=== PATIENT | female | born 1985 | race Caucasian/White ===

== ENCOUNTER → 2016-11-24 10:00 | Observation (INO) ==
--- NOTE | 2016-11-24 09:00 | Discharge Summary ---
Date of Encounter: 11/24/16 Time of Encounter: 09:00 - Discharge Diagnosis (1) 35 weeks gestation of Priority: Primary Status: Acute Comments: Admit for observation (2) Sciatic leg pain Priority: Secondary Status: Acute Comments: Discussed comfort measures and interventions with patient. Patient denies any questions or concerns. - Discharge Medications Home Medications: Aspirin [Lo-Dose Aspirin EC] 81 mg PO DAILY 08/26/16 [History] Lebetolol . 100 mg PO BID 08/26/16 [History] Vitamin Tablet PO DAILY 08/26/16 [History] Ferrous Sulfate [Iron] 325 mg PO DAILY 11/24/16 [History] Allergies/Adverse Reactions: Allergies latex Allergy (Verified 08/26/16 14:13) Rash Date of admission: 11/24/16 08:04 Discharging clinician: Leeann Chávez Anticipated date of discharge: 11/24/16 - Patient Status Disposition: Home, Self-Care Condition: Good Functional capacity at discharge: independent ambulation - Discharge Instructions Follow Up With: Lennie Trinidad DO [Partnered Physician] - - Diet and Activity Activity: increase activity as tolerated Diet: regular diet Hospital Course CONE TREATER Hospital course: Patient is 30 y/o at 35 weeks gestation presents with complaints of sciatic nerve pain of the left leg. Patient denies contractions, LOF or VB. Patient reports +FM. Patient denies any dysuria or urinary frequency. Patient is scheduled for tomorrow in OB office with Dr. Trinidad. Time Attestation: Total time spent providing and/or coordinating discharge services: Time Spent: Less than 30 minutes Exam - Constitutional General appearance IM: A&O X 3, pleasant, answers questions appropriately - Respiratory Respiratory exam: Present: CTAB - Cardiovascular Cardiovascular exam IM: Present: RRR, +S1, +S2 - GI/Abdominal GI/Abdominal exam IM: normal bowel sounds - Extremities Exam Extremities exam IM: Present: full ROM, normal capillary refill, normal inspection - Neurological Exam Neurological exam: alert, oriented X3, reflexes normal - Other Additional findings: FHR 135 bpm moderate variability +15x15 accels no decels noted. Cat. 1 tracing. Reactive NST. - VTE Reasons for not Prescribing Prophylaxis: Treatment not Indicated - Low risk for VTE
== END | disposition home or self-care (01) ==
LOC: 1NENULAB
PROVIDERS: ADMIT Advanced Practice Midwife; ATTEND Obstetrics & Gynecology

== ENCOUNTER → 2016-12-11 20:00 | Observation (INO) ==
[2016-12-11 18:49] LABS: Bilirubin,Urine Negative (Negative); Blood,Urine Negative (Negative); Clarity,Urine Cloudy (Clear); Color,Urine Yellow (Yellow); Glucose,Urine (UA) Normal (Normal); Ketones,Urine Negative (Negative); Leukocyte Esterase,Urine Trace (Negative); Nitrite,Urine Negative (Negative); Protein,Urine Negative (Neg-Trace); Urobilinogen,Urine Normal (Normal)
[2016-12-11 18:50] LABS: Bacteria,Urine None Seen per hpf (None-Few); Hyaline Casts,Urine None Seen per lpf (None-Few); RBC,Urine 0-3 per hpf (0-3); Squamous Epithelial Cell,Urine Many per lpf (None-Few); WBC,Urine 0-3 per hpf (0-3)
[2016-12-11 19:00] LABS: Alanine Aminotransferase 7 Units/L (0-55); Aspartate Amino Transferase 14 Units/L (5-34); BUN/Creatinine Ratio 8 (6-26); Uric Acid 4.1 mg/dL (2.6-6.0); eGFR For African Americans > 60 (> 60); eGFR For Non-African Americans > 60 (> 60)
[2016-12-11 19:04] LABS: Blood Urea Nitrogen 5 mg/dL (7-20); Lactate Dehydrogenase 199 Units/L (159-327)
[2016-12-11 19:20] LABS: Creatinine,Urine 31 mg/dL; Protein/Creatinine Ratio,Urine 0.23 mg/mg (0-0.20)
--- NOTE | 2016-12-11 19:35 | Discharge Summary ---
Date of Encounter: 12/11/16 Time of Encounter: 19:34 - Discharge Diagnosis (1) Gestational hypertension Priority: Primary Status: Acute Comments: Pt denies headache, epigastric pain, blurry vision, or other visual changes. Pt reports good movement, denies contractions, vaginal bleeding or leaking of fluid. BPs have been within range last 142/80. All PIH labs WNL. Will discharge home with pre-e and labor precautions, when to call provider or return to triage. Pt verbalizes understanding. Qualifiers: Trimester: third trimester Qualified Code(s): O13.3 - Gestational [ -induced] hypertension without significant proteinuria, third trimester (2) 38 weeks gestation of Priority: Primary Status: Acute (3) NST (non-stress test) reactive Priority: Secondary Status: Acute Comments: Baseline 120 - Discharge Medications Home Medications: Aspirin [Lo-Dose Aspirin EC] 81 mg PO DAILY 08/26/16 [History] Lebetolol . 100 mg PO BID 08/26/16 [History] Vitamin Tablet 1 / PO DAILY 08/26/16 [History] Ferrous Sulfate [Iron] 325 mg PO DAILY 11/24/16 [History] Allergies/Adverse Reactions: Allergies latex Allergy (Verified 08/26/16 14:13) Rash Data Procedures and tests throughout hospitalization: Laboratory Tests 12/11/16 12/11/16 12/11/16 18:25 18:35 18:35 BUN 5 L Creatinine 0.59 Est GFR ( Amer) > 60 Est GFR (Non-Af Amer) > 60 BUN/Creatinine Ratio 8 Uric Acid 4.1 AST 14 ALT 7 Lactate Dehydrogenase 199 Urine Color Yellow Urine Clarity Cloudy A Urine pH 7.0 Ur Specific [place] 1.010 Urine Protein Negative Urine Glucose (UA) Normal Urine Ketones Negative Urine Blood Negative Urine Nitrite Negative Urine Bilirubin Negative Urine Urobilinogen Normal Ur Leukocyte Esterase Trace H Urine Microscopic RBC 0-3 Urine Microscopic WBC 0-3 Ur Squamous Epith Cells Many H Urine Bacteria None Seen Hyaline Casts None Seen Urine Creatinine Protein/Creatinin Ratio Urine Total Protein Specimen Rejected Clotted 12/11/16 18:35 BUN Creatinine Est GFR ( Amer) Est GFR (Non-Af Amer) BUN/Creatinine Ratio Uric Acid AST ALT Lactate Dehydrogenase Urine Color Urine Clarity Urine pH Ur Specific [place] Urine Protein Urine Glucose (UA) Urine Ketones Urine Blood Urine Nitrite Urine Bilirubin Urine Urobilinogen Ur Leukocyte Esterase Urine Microscopic RBC Urine Microscopic WBC Ur Squamous Epith Cells Urine Bacteria Hyaline Casts Urine Creatinine 31 Protein/Creatinin Ratio 0.23 H Urine Total Protein < 7 Specimen Rejected Labs on day of discharge: Labs from last 24 hours 12/11/16 12/11/16 12/11/16 18:35 18:35 18:35 BUN 5 L Creatinine 0.59 Est GFR ( Amer) > 60 Est GFR (Non-Af Amer) > 60 BUN/Creatinine Ratio 8 Uric Acid 4.1 AST 14 ALT 7 Lactate Dehydrogenase 199 Urine Color Yellow Urine Clarity Cloudy A Urine pH 7.0 Ur Specific [place] 1.010 Urine Protein Negative Urine Glucose (UA) Normal Urine Ketones Negative Urine Blood Negative Urine Nitrite Negative Urine Bilirubin Negative Urine Urobilinogen Normal Ur Leukocyte Esterase Trace H Urine Microscopic RBC 0-3 Urine Microscopic WBC 0-3 Ur Squamous Epith Cells Many H Urine Bacteria None Seen Hyaline Casts None Seen Urine Creatinine 31 Protein/Creatinin Ratio 0.23 H Urine Total Protein < 7 Specimen Rejected 12/11/16 18:25 BUN Creatinine Est GFR ( Amer) Est GFR (Non-Af Amer) BUN/Creatinine Ratio Uric Acid AST ALT Lactate Dehydrogenase Urine Color Urine Clarity Urine pH Ur Specific [place] Urine Protein Urine Glucose (UA) Urine Ketones Urine Blood Urine Nitrite Urine Bilirubin Urine Urobilinogen Ur Leukocyte Esterase Urine Microscopic RBC Urine Microscopic WBC Ur Squamous Epith Cells Urine Bacteria Hyaline Casts Urine Creatinine Protein/Creatinin Ratio Urine Total Protein Specimen Rejected Clotted Date of admission: 12/11/16 17:51 Discharging clinician: Ann Lee Anticipated date of discharge: 12/11/16 - Patient Status Disposition: Home, Self-Care Condition: Good Functional capacity at discharge: independent ambulation Overall status at discharge: patient is back to baseline - Discharge Instructions - Diet and Activity Activity: resume usual activities as tolerated Diet: regular diet Hospital Course DRESS CUTTER Reason for admission: other (PIH eval) Time Attestation: Total time spent providing and/or coordinating discharge services: Time Spent: Less than 30 minutes Exam - Constitutional General appearance IM: A&O X 3, no acute distress - Respiratory Respiratory exam: Present: CTAB - Cardiovascular Cardiovascular exam IM: Present: RRR, +S1, +S2 - GI/Abdominal GI/Abdominal exam IM: normal bowel sounds, soft - Extremities Exam Extremities exam IM: Present: normal capillary refill, normal inspection, pedal edema - Neurological Exam Neurological exam: normal gait, oriented X3, reflexes normal - VTE Reasons for not Prescribing Prophylaxis: Medical contraindication
[2016-12-11 19:49] LABS: Basophils % 0.2 %; Eosinophils # 0.1 K/mcL (0.0-0.6); Eosinophils % 1.1 %; Hematocrit 32.2 % (35.3-44.9); Hemoglobin 10.6 g/dL (11.5-15.4); Immature Granulocytes % 0.9 % (0-4); Lymphocytes # 2.2 K/mcL (0.6-4.6); Lymphocytes % 18.8 %; Mean Corpuscular HGB Conc 32.9 g/dL (31.6-35.5); Mean Corpuscular Hemoglobin 28.7 pg (28.0-33.3); Mean Corpuscular Volume 87.3 fL (83.0-100.0); Mean Platelet Volume 11.2 fL (9.4-12.4); Monocytes # 0.9 K/mcL (0.0-1.3); Monocytes % 7.5 %; Neutrophils # 8.2 K/mcL (1.6-8.9); Platelet Count 197 K/mcL (140-400); Red Blood Count 3.69 M/mcL (3.82-4.97); Red Cell Distribution Width 13.8 % (11.5-14.5); Segmented Neutrophils % 71.5 %
== END | disposition home or self-care (01) ==
LOC: 1NENULAB
PROVIDERS: ADMIT Obstetrics & Gynecology; ATTEND Obstetrics & Gynecology

== ENCOUNTER 2016-12-15 18:01 | Inpatient (IN) ==
[2016-12-15 17:15] LABS: Basophils % 0.2 %; Eosinophils # 0.1 K/mcL (0.0-0.6); Eosinophils % 0.9 %; Hemoglobin 10.7 g/dL (11.5-15.4); Lymphocytes % 17.2 %; Mean Corpuscular HGB Conc 32.4 g/dL (31.6-35.5); Mean Corpuscular Hemoglobin 28.2 pg (28.0-33.3); Mean Corpuscular Volume 87.1 fL (83.0-100.0); Monocytes # 0.8 K/mcL (0.0-1.3); Monocytes % 6.8 %; Neutrophils # 8.7 K/mcL (1.6-8.9); Platelet Count 198 K/mcL (140-400); Red Blood Count 3.79 M/mcL (3.82-4.97); Red Cell Distribution Width 13.9 % (11.5-14.5); Segmented Neutrophils % 73.9 %
[2016-12-15 17:30] LABS: Alanine Aminotransferase 7 Units/L (0-55); Aspartate Amino Transferase 12 Units/L (5-34); BUN/Creatinine Ratio 11 (6-26); Blood Urea Nitrogen 6 mg/dL (7-20); Lactate Dehydrogenase 162 Units/L (159-327); Uric Acid 3.7 mg/dL (2.6-6.0); eGFR For African Americans > 60 (> 60); eGFR For Non-African Americans > 60 (> 60)
[2016-12-15 17:35] LABS: Creatinine,Urine 21 mg/dL; Protein/Creatinine Ratio,Urine 0.33 mg/mg (0-0.20)
--- NOTE | 2016-12-15 18:04 | OB/GYN History & Physical ---
Date of Encounter: 12/15/16 Time of Encounter: 18:00 Assessment and Plan (1) 38 weeks gestation of Current visit: Yes Status: Acute Reactive NST Induction for superimposed pre-eclampsia per MFM recommendations and proteinuria (2) Gestational hypertension Current visit: Yes Status: Acute Will admit for cervadil induction of labor Patient may shower and have dinner prior to insertion of cervadil Patient may have ambien for sleep tonight if needed GBS negative POC per consult with Dr Kirkpatrick Qualifiers: Trimester: third trimester Qualified Code(s): O13.3 - Gestational [ -induced] hypertension without significant proteinuria, third trimester History of Present Illness Chief complaint: PIH Evaluation HPI: Ms. Núñez is a 31 year old at 38 weeks and 4 days that presents to labor and delivery from the office for a PIH evaluation. She has a that has been complicated with a history of pre-eclampsia in her first and current chronic hypertension. She also has a 1:5 risk of trisomy 21 with this and had declined cell-free dna analysis and amniocentesis. She is GBS negative and A+. She is Rubella and varicella immune and HIV, Hep B, and Treponema negative. She states positive movement. She denies LOF, vaginal bleeding, headache, vision changes, and epigastric pain. Past Med Surg Social Fam HX - Past Medical History Medical history: non-contributory Psychiatric history: no psych history - Past Surgical History Surgical History: no surgical history - Social History Smoking Status: Never smoker Smokeless Tobacco Status: No Alcohol use: none, unknown Drug use: none - Family History Mother Living Status: Still Living Hx Family Cardiac Disorders: No Hx Family Respiratory Disorders: No Hx Family Cancer: No Hx Family GI Disorders: No Hx Family Endocrine Disorder: No Hx Family Neuromuscular Disorders: No Hx Family Neurologic Disorders: No Hx Family HEENT Disorders: No Hx Family Autoimmune Disorders: No Obstetrical History - Pregnancies : 2 Para: 1 Term: 1 : 0 Ab's: 0 Livin Medications and Allergies Aspirin [Lo-Dose Aspirin EC] 81 mg PO DAILY 08/26/16 [History] Lebetolol . 100 mg PO BID 08/26/16 [History] Vitamin Tablet 1 / PO DAILY 08/26/16 [History] Ferrous Sulfate [Iron] 325 mg PO DAILY 11/24/16 [History] Allergies latex Allergy (Verified 08/26/16 14:13) Rash Review of System OB All systems PM: reviewed and no additional remarkable complaints except as stated Exam - Constitutional Constitutional: well developed, well nourished, no acute distress, average body habitus - HEENT HEENT: Normocephaly, Mucus Membranes Moist - Neck Neck exam: full ROM, normal inspection - Lungs Respiratory exam: CTAB - Cardiovascular Cardiovascular exam: RRR, +S1, +S2 - Abdomen Abdomen: Present: bowel sounds normal, gravid, non tender - Extremities Extremities exam: normal capillary refill, normal inspection, radial pulses palpable and symetrical Deep Tendon Reflex Grade: 2+ Normal Results Result Diagrams: 12/15/16 17:00 12/15/16 17:00 Abnormal lab results WBC 11.7 K/mcL (4.3-11.1) H 12/15/16 17:00 RBC 3.79 M/mcL (3.82-4.97) L 12/15/16 17:00 Hgb 10.7 g/dL (11.5-15.4) L 12/15/16 17:00 Hct 33.0 % (35.3-44.9) L 12/15/16 17:00 BUN 6 mg/dL (7-20) L 12/15/16 17:00 Protein/Creatinin Ratio 0.33 mg/mg (0-0.20) H 12/15/16 17:00 All other labs normal. - VTE Reasons for not Prescribing Prophylaxis: Treatment not Indicated - Low risk for VTE
[2016-12-15] MEDS ORDERED: Famotidine 20 MG/2 ML VIAL IVP PRN (18:15)
[2016-12-15] MEDS ORDERED: Naloxone 0.4 MG/ML INJ IVP PRN (18:15)
--- NOTE | 2016-12-15 22:34 | OB Labor Progress Note ---
Date of Encounter: 12/15/16 Time of Encounter: 22:32 Labor Progress Note - Subjective Subjective: Patient resting comfortably in bed after cervadil placement. She is attempting to sleep - Vital Signs Vital Signs: BP 128/61 P68 VSS - Heart Tones Heart Tones: FHTs 140's moderate variability no decels 15x15 accels present - [place]: Irritability per toco; uterus palpates soft - Plan Plan: Continue to monitor VS and FHT Patient may have ambien if needed for insomnia Anticipate vaginal delivery POC per consult with Dr Kirkpatrick
[2016-12-16] MEDS ORDERED: Ringers Solution, Lactated 1,000 ML ONE (01:05)
[2016-12-16] MEDS ORDERED: Ringers Solution, Lactated 1,000 ML IVC SCH (01:10)
--- NOTE | 2016-12-16 03:11 | Event Note ---
Date of Encounter: 12/16/16 Time of Encounter: 03:08 RN called this CNM to floor to review tracing. Category II tracing with minimal to moderate variability, one decel in past 2 hours lasting less than 60 seconds. Patient had PO ambien at about 2300. Variability increased while CNM reviewing tracing. Dr Krikpatrick called to also review tracing. OK to continue with current cervadil and remove at 0600.
[2016-12-16] MEDS ORDERED: Oxytocin 20 units/ LR 1000 mL 20 UNIT/1,000 ML BAG IVC SCH (08:45)
--- NOTE | 2016-12-16 10:17 | OB Labor Progress Note ---
Date of Encounter: 12/16/16 Time of Encounter: 10:14 Labor Progress Note - Subjective Subjective: Pt comfortable at this time. No complaints. - Heart Tones Heart Tones: 135/moderate varibilty/ no accels/no decels - Plan Plan: Discussed patient with Dr. Aguila. Concern over tracing with periods of minimal to absent variability and using Cytotec. Will start Pitocin Increase Pitocin per protocol until adequate contraction pattern Nubain and epidural as desired Anticipate
--- NOTE | 2016-12-16 12:01 | OB Labor Progress Note ---
Date of Encounter: 12/16/16 Time of Encounter: 11:59 Labor Progress Note - Subjective Subjective: Pt resting comfortable in bed - Cervix Cervix: 1/50/-1 - Heart Tones Heart Tones: 125/moderate/+accels/-decels Cat 1 - Interventions Interventions: intracervical ng placed without difficulty. - Plan Plan: Continue to increase pitocin to adequate labor pattern Nubain and epidural if desired AROM when ng out Anticipate
--- NOTE | 2016-12-16 18:39 | OB Labor Progress Note ---
Date of Encounter: 12/16/16 Time of Encounter: 18:37 Labor Progress Note - Subjective Subjective: Patient resting comfortably, at this time. tolerating contractions well. - Cervix Cervix: 4/50/-2 - Heart Tones Heart Tones: 120/moderate/+accels/early and variables Cat II - [place]: IUPC 2-3 - Interventions Interventions: IUPC placed - Plan Plan: Continue current management. Epidural and nubain if desired Anticipate
[2016-12-16] MEDS ORDERED: *HR* Nalbuphine 20 MG/ML AMPUL IVP PRN (19:48)
[2016-12-17] MEDS ORDERED: 0.9 % Sodium Chloride 1,000 ML ONE (00:02)
[2016-12-17] MEDS ORDERED: Metoclopramide 10 MG/2 ML VIAL IVP PRN ×2 (00:05→04:39)
--- NOTE | 2016-12-17 00:36 | OB Labor Progress Note ---
Date of Encounter: 12/17/16 Time of Encounter: 00:32 Labor Progress Note - Cervix Cervix: 5/60/-2 - Heart Tones Heart Tones: 135/minimal/-accels/variables. - [place]: IUPC adequate contraction pattern - Interventions Interventions: Patient with frequent repositioning and peaunt ball for variables. After patient on birthing ball onset of deep variables to 60's, continues despite positioning changes, and anmioinfusion. Dr. Aguila consulted. Decision for C/ S made in discussion with ABBY ELDER and patient. Pt prepped for C/S. - Plan Plan: Proceed with C/S
[2016-12-17] MEDS ORDERED: EPHEDrine 50 MG/ML VIAL ONE (00:44)
[2016-12-17] MEDS ORDERED: *HR* Morphine Sulfate/PF 5 MG/10 ML AMPUL ONE (00:45)
[2016-12-17] MEDS ORDERED: Ondansetron 4 MG/2 ML VIAL IVP PRN ×4 (01:15→05:34)
[2016-12-17] MEDS ORDERED: *HR* Oxytocin 10 UNIT/ML VIAL IM ONE (01:15)
[2016-12-17] MEDS ORDERED: *HR* Morphine 2 MG/ML SYRINGE IVP PRN ×2 (01:15→04:39)
[2016-12-17] MEDS ORDERED: Naloxone 0.4 MG/ML INJ IVP PRN ×2 (01:15→04:39)
[2016-12-17] MEDS ORDERED: *HR* OxyCODONE/APAP 5/325 TABLET PO PRN ×2 (01:15→04:39)
[2016-12-17] MEDS ORDERED: *HR* HYDROmorphone (PF) 1 MG/ML SYRINGE IVP PRN ×2 (01:15→04:39)
[2016-12-17] MEDS ORDERED: Ibuprofen 400 MG TABLET PO PRN ×2 (01:15→04:39)
[2016-12-17] MEDS ORDERED: Acetaminophen IV 1,000 MG/100 ML INFUS..BTL IVPB STA ×2 (01:23→04:39)
[2016-12-17] MEDS ORDERED: Ondansetron 4 MG/2 ML VIAL ONE (01:30)
--- NOTE | 2016-12-17 01:49 | Anesthesia Evaluation PreOp ---
Date of Encounter: 12/16/16 Time of Encounter: 13:40 - Past History Planned Operation: labor Cardiac History: HTN Pulmonary History: Denies Any Significant HX Other Medical History: GERD Anesthesia History: No Prior Anesthetic Complications (vag delivery X1) : Yes Test: Positive Alcohol Use: none, unknown Drug use: none Medications and Allergies Aspirin [Lo-Dose Aspirin EC] 81 mg PO DAILY 08/26/16 [History] Lebetolol . 100 mg PO BID 08/26/16 [History] Vitamin Tablet 1 / PO DAILY 08/26/16 [History] Ferrous Sulfate [Iron] 325 mg PO DAILY 11/24/16 [History] Labetalol [Trandate] 100 mg PO BID 12/15/16 [History] Allergies latex Allergy (Verified 08/26/16 14:13) Rash - Meds/Allergy Pre-op Review Medications Reviewed: Yes (12/16/16 @ 2033) Allergies Reviewed: Yes Beta Blockers on Current Med List: Yes (Labetalol) Anesthesia Results - Labs 12/15/16 17:00 12/15/16 17:00 Anesthesia Exam 3 Vital Signs Time 1340 BP 162/82 Pulse 64 Resp 16 O2 Sat Height: 5'7" Weight: 99kG NPO (# of Hours): 12hrs - HEENT Pupil (Motor): Pupils equal, EOMI Mallampati: III Teeth: Normal Oral Opening: Greater than 3 - MINING TECHNICIAN LOC: Oriented MINING TECHNICIAN Motor: Normal RUE, Normal LUE, Normal RLE, Normal LLE, Normal Face MINING TECHNICIAN Sensory: Normal: RUE, LUE, RLE, LLE, Face - Pulmonary Breath Sounds: bilateral Clear Respiratory Effort: Symmetrical Anesthesia Assess/Plan ASA Score: 2 Modified Steffi Scale for Level of Consciousness: Cooperative, oriented, and tranquil Anesthetic Plan: Regional Monitoring Plan: Standard Monitors Recovery Plan: PACU
--- NOTE | 2016-12-17 02:15 | OB/GYN Procedure Note ---
Section - Date of procedure: 12/17/16 Preop diagnosis: arrest of descent, arrest of dilation, category 3 FHT tracing Post-op diagnosis: same Procedure: primary low transverse Surgeon: Jayce Aguila Estimated blood loss (cc): 500 Anesthesia Type: Spinal section complications: none Disposition: PACU Specimens: Placenta - Infant (s) A Infant Delivery Date: 12/17/16 Infant Delivery Time: 00:21 Presentation: vertex Position: OA Gender: Male Viability: Viable Pounds: 5 Ounces: 12 at 1 minute: 8 at 5 minutes: 8 Specimens collected: cord blood Cord: 3 umbilical vessels - Narrative Narrative: Patient's 31-year-old 2 para 1 female at 30 weeks 3 days gestation brought to labor and delivery for induction of labor secondary to preeclampsia. Induction was begun despite adequate contractions gently reach 4 cm dilation did begin having variable decelerations followed by then gently patient's because of this decision was made to turn the Pitocin proceed with was aware of operative risks and signed appropriate consent. Patient was taken operating room where spinal anesthesia was administered she is prepped draped in usual sterile fashion bladder was drained of clear urine with Barrett catheter. Once adequate anesthesia was determined scope was inserted skin incision, fascial incision was extended bilaterally and rectus muscles divided peritoneum was entered sharply and bladder blade was placed and bladder flap was developed and lower uterine segment. Scalpel was used to make a low transverse uterine incision. This was extended bluntly bilaterally. Infant was delivered from vertex presentation. Cord was clamped cut and was taken to nurse personnel who were in attendance. Apgars were determined to be 8 at 1 minute and 8 at 5 minutes and weight was 5 lbs. 12 oz. Placenta was delivered manually without difficulty. Uterine cavity was massaged free of all residual tissue. Uterus was closed with 0 Vicryl running lock stitch and hemostasis was ensured. Fascia was then closed 0 Vicryl in a running manner. Deep subcutaneous tissue was closed with several interrupted sutures with 0 chromic. Skin edges reapproximated with 4-0 Vicryl and Steri- Strips are applied. Estimated blood loss 500 mL all sponge and instruments counts are correct patient was taken recovery in good condition.
--- NOTE | 2016-12-17 03:42 | Anesthesia Evaluation Post Op ---
Date of Encounter: 12/17/16 Time of Encounter: 03:40 - Vital Signs Vital Signs: see Nursing notes last witnessed, 118/67 63bpm 97% RA - Lungs Lungs: Clear Ascult./Percussion - Airway Airway: Non-obstructed - Cardiovascular Regular Rate - Mental Status Mental Status: Alert & Oriented, Answers Appropriately - Pain Pain Scale: 0 Pain Scale used: Numeric (1 - 10) - Nausea Vomiting Nausea Vomiting: Not Present - Hydration Hydration: NPO, Barrett catheter - Discharge PostOp Status: Transfer Patient to floor Anes Supervising Prov Stmt: Pt seen/evaluated, VSS And pt has met criteria for discharge to home. - MD Anum
[2016-12-17] MEDS ORDERED: Rho Immune Globulin 1,500 UNIT SYRINGE IM ONE (04:39)
[2016-12-17] MEDS ORDERED: Simethicone 80 MG TAB.CHEW PO PRN (04:39)
[2016-12-17] MEDS ORDERED: Sennosides 8.6 MG TABLET PO PRN (04:39)
[2016-12-17] MEDS ORDERED: Oxytocin 20 units/ LR 1000 mL 20 UNIT/1,000 ML BAG IVC ONE (05:39)
[2016-12-17] MEDS ORDERED: Prenatal Vit/FA 1 EACH TABLET PO SCH (09:00)
[2016-12-17] MEDS: Ibuprofen 600 MG TABLET PO PRN ×2 (12:05→20:08)
[2016-12-17] MEDS: *HR* OxyCODONE/APAP 5/325 TABLET PO PRN (16:44)
[2016-12-17] MEDS: Prenatal Vit/FA 1 EACH TABLET PO SCH (19:29)
[2016-12-18 05:19] LABS: Basophils % 0.2 %; Eosinophils # 0.2 K/mcL (0.0-0.6); Eosinophils % 1.6 %; Hematocrit 27.2 % (35.3-44.9); Immature Granulocytes % 0.7 % (0-4); Lymphocytes # 1.9 K/mcL (0.6-4.6); Lymphocytes % 14.8 %; Mean Corpuscular Hemoglobin 28.3 pg (28.0-33.3); Mean Corpuscular Volume 88.6 fL (83.0-100.0); Mean Platelet Volume 11.3 fL (9.4-12.4); Monocytes # 1.2 K/mcL (0.0-1.3); Monocytes % 9.7 %; Neutrophils # 9.3 K/mcL (1.6-8.9); Platelet Count 181 K/mcL (140-400); Red Blood Count 3.07 M/mcL (3.82-4.97); Red Cell Distribution Width 14.4 % (11.5-14.5)
[2016-12-18 05:23] LABS: Hemoglobin 8.7 g/dL (11.5-15.4)
[2016-12-18] MEDS: Prenatal Vit/FA 1 EACH TABLET PO SCH (07:30)
--- NOTE | 2016-12-18 09:26 | OB/GYN Progress Note ---
Date of Encounter: 12/18/16 Time of Encounter: 09:23 - Assessment and Plan (1) S/P section Current Visit: Yes Status: Acute Pt meeting POD#1 milestones. Continue to monitor. Ambulate in hallway today. Remove dressing POD#2. Anticipate discharge home POD#2-3. (2) anemia Current Visit: Yes Status: Acute pp hgb 8.7. Pt denies s/sx anemia. (3) Preeclampsia Current Visit: Yes Status: Acute PP BP WNL Qualifiers: Trimester: unspecified trimester Qualified Code(s): O14.90 - Unspecified pre-eclampsia, unspecified trimester Subjective - Subjective Patient reports: appetite normal, voiding normally, pain well controlled, ambulating normally [place]: doing well Objective - Vital Signs Latest vital signs: Vital Signs Temp Pulse Resp BP Pulse Ox 12/18/16 07:40 16 12/18/16 04:46 98.1 F 85 16 118/73 98 12/17/16 23:00 98.4 F 73 16 102/60 97 12/17/16 19:51 98.6 F 80 16 111/72 98 12/17/16 16:10 98.6 F 76 16 127/91 98 12/17/16 11:35 98.4 F 74 16 135/78 97 Intake and Output 12/17/16 12/18/16 12/18/16 23:59 07:59 15:59 Intake Total 100 / 100 500 / 500 Output Total 475 / 475 935 / 935 Balance -375 / -375 -435 / -435 Intake: Oral 100 / 100 500 / 500 Output: Urine 300 / 300 Catheter 475 / 475 635 / 635 Other: Stool Characteristics Normal for Patient Weight 97.4 kg Patient Weight 12/18/16 23:59 Weight 97.4 kg - Exam Lungs: bilateral: normal Chest: Normal S1, Normal S2 Extremities: Present: normal Abdomen: Present: soft Incision: Present: dressed (dressing dry and intact) Uterus: Present: firm Fundal Height: 0 (u/u) - Labs Labs: Laboratory Results - last 24 hr 12/18/16 03:37 WBC 12.8 H RBC 3.07 L Hgb 8.7 L D Hct 27.2 L MCV 88.6 MCH 28.3 MCHC 32.0 RDW 14.4 Plt Count 181 MPV 11.3 Immature Gran % 0.7 Seg Neutrophils % 73.0 Lymphocytes % 14.8 Monocytes % 9.7 Eosinophils % 1.6 Basophils % 0.2 Neutrophils # 9.3 H Lymphocytes # 1.9 Monocytes # 1.2 Eosinophils # 0.2 Basophils # 0.0
[2016-12-18] MEDS: *HR* OxyCODONE/APAP 5/325 TABLET PO PRN ×2 (16:05→22:27)
[2016-12-19] MEDS: *HR* OxyCODONE/APAP 5/325 TABLET PO PRN (06:33)
[2016-12-19 08:36] VITALS: BP 132/68
[2016-12-19] MEDS: Prenatal Vit/FA 1 EACH TABLET PO SCH (08:59)
--- NOTE | 2016-12-19 09:48 | Discharge Summary ---
Date of Encounter: 12/19/16 Time of Encounter: 09:43 - Discharge Diagnosis (1) Gestational hypertension Priority: Secondary Status: Acute Comments: VSS - continue on labetalol Follow up in the office in 2 weeks for blood pressure check and c/s follow up Qualifiers: Trimester: third trimester Qualified Code(s): O13.3 - Gestational [ -induced] hypertension without significant proteinuria, third trimester (2) delivery delivered Priority: Primary Status: Acute Comments: Patient doing well s/p day 2 Pain well controlled with medication Voiding normally and passing flatus Lochia light and without clots VSS Dishcharge home today with baby Follow up in office in 2 weeks and at 6 weeks (3) Anemia during puerperium Priority: Secondary Status: Acute Comments: Hgb decreased . continue ferrous sulfate 325mg po daily - Discharge Medications Prescriptions: OxyCODONE/APAP 5/325 [Percocet 5/325 MG] 1 each PO Q4HR PRN #30 tablet PRN Reason: Moderate pain 4-6 Ibuprofen [Motrin] 600 mg PO Q6HR PRN #60 tablet PRN Reason: Cramping Docusate [Colace] 100 mg PO BID #30 capsule Home Medications: Aspirin [Lo-Dose Aspirin EC] 81 mg PO DAILY 08/26/16 [History] Vitamin Tablet 1 / PO DAILY 08/26/16 [History] Ferrous Sulfate [Iron] 325 mg PO DAILY 11/24/16 [History] Docusate [Colace] 100 mg PO BID #30 capsule 12/19/16 [Rx] Ibuprofen [Motrin] 600 mg PO Q6HR PRN #60 tablet 12/19/16 [Rx] Labetalol [Trandate] 100 mg PO BID tablet 12/19/16 [Rx] OxyCODONE/APAP 5/325 [Percocet 5/325 MG] 1 each PO Q4HR PRN #30 tablet 12/19/16 [Rx] Simethicone [Gas-X] 80 mg PO TID PRN #0 tab.chew 12/19/16 [Rx] Allergies/Adverse Reactions: Allergies latex Allergy (Verified 08/26/16 14:13) Rash Data Procedures and tests throughout hospitalization: Laboratory Tests 12/15/16 12/15/16 12/15/16 17:00 17:00 17:00 WBC 11.7 H RBC 3.79 L Hgb 10.7 L Hct 33.0 L MCV 87.1 MCH 28.2 MCHC 32.4 RDW 13.9 Plt Count 198 MPV 11.0 Immature Gran % 1.0 Seg Neutrophils % 73.9 Lymphocytes % 17.2 Monocytes % 6.8 Eosinophils % 0.9 Basophils % 0.2 Neutrophils # 8.7 Lymphocytes # 2.0 Monocytes # 0.8 Eosinophils # 0.1 Basophils # 0.0 BUN 6 L Creatinine 0.57 Est GFR ( Amer) > 60 Est GFR (Non-Af Amer) > 60 BUN/Creatinine Ratio 11 Uric Acid 3.7 AST 12 ALT 7 Lactate Dehydrogenase 162 Urine Creatinine 21 Protein/Creatinin Ratio 0.33 H Urine Total Protein < 7 12/18/16 03:37 WBC 12.8 H RBC 3.07 L Hgb 8.7 L D Hct 27.2 L MCV 88.6 MCH 28.3 MCHC 32.0 RDW 14.4 Plt Count 181 MPV 11.3 Immature Gran % 0.7 Seg Neutrophils % 73.0 Lymphocytes % 14.8 Monocytes % 9.7 Eosinophils % 1.6 Basophils % 0.2 Neutrophils # 9.3 H Lymphocytes # 1.9 Monocytes # 1.2 Eosinophils # 0.2 Basophils # 0.0 BUN Creatinine Est GFR ( Amer) Est GFR (Non-Af Amer) BUN/Creatinine Ratio Uric Acid AST ALT Lactate Dehydrogenase Urine Creatinine Protein/Creatinin Ratio Urine Total Protein Date of admission: 12/15/16 18:55 Primary care physician: PCP HELLEN Discharging clinician: Alie Ndiaye Anticipated date of discharge: 12/19/16 - Patient Status Disposition: Home, Self-Care Condition: Good Functional capacity at discharge: independent ambulation - Discharge Instructions Follow Up With: NO,PCP [Primary Care Provider] - Jayce Aguila MD [Partnered Physician] - Lennie Trinidad DO [Partnered Physician] - - Diet and Activity Activity: increase activity as tolerated Diet: regular diet Hospital Course Reason for admission: induction of labor, IUP at term Delivery: section Episiotomy: none Laceration: none Other procedures: none complications: none Discharge diagnosis: IUP at term delivered baby: male Time Attestation: Total time spent providing and/or coordinating discharge services: Time Spent: Less than 30 minutes - VTE Reasons for not Prescribing Prophylaxis: Treatment not Indicated - Low risk for VTE Documentation of Mechanical Device: Intermittent pneumatic compression device Exam - Constitutional Vitals: Temp Pulse Resp BP Pulse Ox 98.6 F 91 16 132/68 97 12/19/16 07:30 12/19/16 07:30 12/19/16 07:30 12/19/16 07:30 12/19/16 03:50 General appearance IM: cooperative, A&O X 3, pleasant - Respiratory Respiratory exam: Present: CTAB - Cardiovascular Cardiovascular exam IM: Present: RRR, +S1, +S2 - GI/Abdominal GI/Abdominal exam IM: normal bowel sounds, soft Incision: normal, dry, intact - Uterus Position: 1 Finger Below Umbilicus, Midline - Extremities Exam Extremities exam IM: Present: normal capillary refill, normal inspection, radial pulses palpable and symetrical - Neurological Exam Neurological exam: alert, oriented X3
== END 2016-12-19 13:01 | disposition home or self-care (01) | DRG 540 ==
LOC: 1NENULAB → 1NENUOBS 12-17 04:38
PROVIDERS: ADMIT Obstetrics & Gynecology; ATTEND Obstetrics & Gynecology